=== PATIENT | female | born 1970 | race Caucasian/White ===

== ENCOUNTER 2021-07-02 11:19 | Day surgery (SDC) | payer OTHER, SELFPAY ==
--- NOTE | 2021-07-01 20:03 | HP.PCM_ITS ---
History and Physical Date of Admission: 07/01/21 Date of Service: 06/25/21 MR#:[id number]:[id number]: VINOD MONTERORep #:[id number]:1970 Provider:Dr. 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 Required: No Is patient in pain?: No Allergies No Known Allergies Allergy (Verified 06/25/21 11:04) Medications oxybutynin chloride 15 mg tablet,extended release 24 hr 15 mg PO DAILY 05/09/21 [History Confirmed 06/25/21] Post menopausal: No Patient : No : No PFSH Surgical History Status post right hip replacement Family History Mother Breast cancer Skin cancer Grandmother Breast cancer Skin cancer Father Diabetes Skin cancer Social History Smoking Status: Former smoker alcohol intake: current details: occasionally substance use type: does not use caffeine: Yes what type of physical activity do you participate in: none seatbelt use: always do you feel safe at home: Yes additional social history: Single HPI D&C Details: Details: VINOD MONTERO is a 50 year old who presents for a second opinion regarding an 8mm endometrium and a h/o spotting. She was seeing a provider at an outside facility and she was confused as the 2 providers seeing her were arguing over treatment options and she left the practice. She denies currently bleeding. An EMB was performed but was inconclusive. Pregancy History 1 Elective abortions Hx Para 1 Spontaneous abortions Hx # Term Pregnancies Ectopic pregnancies Hx # Pregnancies Multiple births # of living children ROS Const ROS Unobtainable: All systems reviewed & are unremarkable except as noted in H Resp Resp: Reports system reviewed and no additional complaints, except as documented ; Denies cough GI GI: Reports as per HPI Psych Psych: Reports system reviewed and no additional complaints, except as documented Exam Const General: cooperative, healthy appearing, comfortable and no acute distress Resp Effort & Inspection: normal respiratory effort Skin General: no rashes or lesions noted Psych Appearance: grossly normal Speech and Movement: speech and movement normal Coding Level of Care Code Off vis,est,level 3 Diagnoses Thickened endometrium R93.89 Assessment and Plan Assessment and Plan (1) Thickened endometrium: Status: Acute Plan - Dr. Ricarda Mcfarland DO: After discussing the patient's diagnosis and treatment plan options, patient wishes to proceed with surgical management. I have discussed with the patient the risks, benefits, and alternatives of the procedure which include but are not limited to risks of anesthesia, bleeding, infection, possible damage to bowel, bladder, or surrounding vasculature which could lead to additional surgery to evaluate any complications. Patient agrees to procedure and wishes to proceed. ACOG/uptodate references given for additional information regarding procedure. plan for hysteroscopy D&C for better analysis of thickened endometrium 06/25/211917<Electronically signed by Ricarda Mcfarland DO>Date UPDATE- I have seen the patient and performed any clinically relevant updates to the history and physical exam. Ricarda Mcfarland DO
[2021-07-02] VITALS (8 sets, daily range): BP systolic 135–157; BP diastolic 78–90; PULSE 54–73; RESP 16–18; TEMP 36.2–36.9; O2SAT 97–100; BMI 42.1
--- NOTE | 2021-07-02 | EMB_PTH ---
PATIENT: VINOD MONTERO LOC: [facility] – [place], [place] U#:[id number] AGE/SX: 50/F ROOM: RE07/02/[address]: Dr. Ricarda Mcfarland DO : 1970 BED: DIS: 07/02/2021 SPEC #: [id number] RECD: 07/02/21 14:17 STATUS: LIZETH ANABEL #: [id number] FIONA: 07/02/21 00:[address]: Ricarda Mcfarland DEPT: SURGICAL PATHOLOGY RECD BY: Andrea Long ENTERED: 07/03/21 09:34 SP TYPE: ENDOM BX/C XIMENA DR: No Primary Care Phys Tissues: Endometrium, NOS Procedures: Surgery Specimen Level IV HEADER OPERATION: Hysteroscopy, dilation and curettage PRE-OP DIAGNOSIS: Thickened endometrium TISSUE SUBMITTED: Endometrial curettings MICROSCOPIC DIAGNOSIS Endometrial curettings: Polypoid fragments of endometrial tissue with simple cystic endometrial hyperplasia without atypia. See comment. SJ:nakul 07/04/2021 COMMENT The findings may represent fragments of endometrial polyp Clinical correlation and appropriate follow up are necessary. MICROSCOPIC DESCRIPTION Slides are reviewed. GROSS DESCRIPTION Received in fixative is one container labeled with the patient's name and designated endometrial curettings. The specimen consists of multiple polypoid fragments of calzada soft tissue that in aggregate measure 4 x 3 x 0.3 cm. The specimen is totally submitted in two cassettes. / JOLEEN:nakul 07/03/2021 TC:5 CPT: 71944
[2021-07-02 11:57] LABS: Hematocrit 40.1 % (37-47); Hemoglobin 12.4 g/dL (12.0-15.0); Mean Corp Hgb Conc 30.9 g/dL (32-36); Mean Corpuscular Hgb 26.2 pg (27.0-32.0); Mean Corpuscular Volume 84.8 fL (81-99); Mean Platelet Vol. 11.2 fl (6.2-12.0); Platelet Count 253 K/mm3 (150-450); RBC Distribution Width CV 13.6 % (11.6-14.6); RBC Distribution Width SD 42.3 fl (35.1-43.9); Red Blood Count 4.73 M/mm3 (4.2-5.4); White Blood Count 6.8 K/mm3 (4.4-11.0)
[2021-07-02] MEDS: Lactated Ringers 1,000 ML 15 ML IV (11:57)
[2021-07-02 12:05] LABS: Internal QC Validated? YES +Cl - CLEAR BKGD; Pregnancy, Urine Negative Negative
[2021-07-02] MEDS: Lidocaine 1% (20 ml mdv) 20 ML Vial (13:49)
--- NOTE | 2021-07-02 14:00 | PCM.OP.BLANK ---
Operative Report Date of Procedure: 07/02/21 preoperative diagnosis: postmenopausal bleeding, thickened endometrium Postoperative diagnosis:postmenopausal bleeding and thickened endometrium Surgeon: Dr. Ricarda Mcfarland, EBL: 5cc urine output: 50cc findings: atrophic appearing uterus specimens removed: endometrial curettings Details of the procedure: Patient was prepped and draped in a normal sterile fashion under MAC anesthesia. A weighted speculum was placed in the vagina and the anterior lip of the cervix was grasped with a single-tooth tenaculum. A paracervical block was placed with 1% lidocaine. Cervix was progressively dilated to allow passage of a 5 mm hysteroscope. The lining was fully visualized and noted to have a large uterine polyp and an atrophic appearing lining. A polyp forceps device was used and with 2 passes the polyp was grasped and removed without difficulty. Curettage was performed and specimen was sent to pathology. All instruments were removed from the vagina and excellent hemostasis was noted. Patient was awoken and taken to recovery in stable condition. Multi Select Codes Urinary/Genital Urinary/Genital CPT Codes: 85525 Hysteroscopy,EMC, Polypectomy
--- NOTE | 2021-07-02 14:03 | PCM.DC ---
Discharge Instructions Diet Discharge Diet: No restrictions Activity Discharge Activity: Return to Normal Activity, May Shower and May Take a Tub Bath (after 1 week) May resume sexual activity in: 1-2 weeks Weight Bearing Status: Weight bearing as tolerated Lifting Restrictions: none Dressing / Incision Call your doctor if you observe: Fever of 101 or Higher, Using more than 1 pad per hour, Shortness of breath and Uncontrolled pain Follow Up Care Please Follow Up With: Ricarda Mcfarland DO When: Call [phone] to schedule appointment. Test Results: Test results from this visit will be discussed in further detail at your follow-up appointment, if applicable. Discharge Plan Admission Primary Reason for Your Visit: hysteroscopy dilation and curettage Attending Provider: Ricarda Mcfarland Primary Care Provider: Care Physician,Rachel Primary Discharge Orders/Prescriptions Prescriptions: New ibuprofen 800 mg tablet 800 mg PO Q8H PRN (Reason: pain) 7 Days Qty: 20 RF: 0 oxycodone-acetaminophen [Percocet] 5-325 mg tablet 1 tab PO Q4H PRN (Reason: pain) 3 Days Qty: 6 RF: 0 Continued oxybutynin chloride 15 mg tablet extended release 24hr 15 mg PO DAILY RF: 0 desvenlafaxine succinate [Pristiq] 100 mg tablet extended release 24 hr 100 mg PO DAILY RF: 0 Referrals / Follow Up: Care Physician,Rachel Primary [Primary Care Provider] - Disposition Disposition (needs filled in before D/C Order can be placed): Home, Self Care
== END 2021-07-02 15:26 | disposition home or self-care (01) ==
LOC: SDC 11:22 → AC 11:23
PROVIDERS: Referring Provider Obstetrics & Gynecology; Visit Provider Obstetrics & Gynecology
PROC: 0UDB8ZZ Extraction of Endometrium, Via Natural or Artificial Opening Endoscopic (ICD-10-PCS; CPT 58558; principal; 2021-07-02 12:50)
DX: N95.0 Postmenopausal bleeding (principal); N85.01 Benign endometrial hyperplasia; R93.89 Abnormal findings on diagnostic imaging of other specified body structures; Z87.891 Personal history of nicotine dependence
CPT/HCPCS: 58558; 81025; 85027; 86850; 86900; 86901; 88305; J7120; J2405

== ENCOUNTER 2021-11-05 05:33 | Day surgery (SDC) | payer OTHER, SELFPAY ==
--- NOTE | 2021-10-28 13:15 | HP.PCM_ITS ---
History and Physical Date of Admission: 10/29/21 MR#: [id number] Acct: [id number] Name:?? VINOD MONTERO Rep #: [id number] :? 1970 ?? ? Provider: Dr. Ricarda Mcfarland, DO Age/Sex:?? 51/F ? Location: [facility] – [place] Status: Signed Intake Vital Signs ? 07/31/2210:28 10/02/2214:22 10/02/2214:23 Height 5 ft 3 in 5 ft 3 in 5 ft 3 in Weight: ? 246 lb ? BMI ? 43.5 ? B BP ? 100/80 ? Intake Visit Reasons:?total robotic hyst. BSO Chief Complaint: pre op robotic hyst BSO Outreach Consultant Required: No Is patient in pain?: No Allergies morphine Adverse Reaction (Verified 07/18/21 14:42) Itching Medications oxybutynin chloride 15 mg tablet,extended release 24 hr 15 mg PO DAILY 05/09/21 [History Confirmed 10/02/21] desvenlafaxine succinate 100 mg tablet,extended release 24 hr (Pristiq) 100 mg PO DAILY 06/27/21 [History Confirmed 10/02/21] Is last menstrual period known: No Post menopausal: No Patient : No : No PFSH Medical History? Cancer Depression Overactive bladder Wears glasses Surgical History? Status post dilation and curettage Status post right hip replacement Family History? Mother Breast cancer Skin cancerGrandmother Breast cancer Skin cancerFather Diabetes Skin cancer Social History? Smoking Status:? Former smoker? alcohol intake:? current? details:? occasionally? substance use type:? does not use? caffeine:? Yes? what type of physical activity do you participate in:? none? seatbelt use:? always? do you feel safe at home:? Yes? additional social history:? Single? HPI total robotic hyst. BSO Details:? Details: VINOD MONTERO is a 50 year old who presents for 2 week follow up D&C. Results showed simple cystic hyperplasia without atypia. The patient is given treatment options today. She also complains of stress incontinence and over active bladder. ultrasound shows a 7 x 3x4 cm uterus, she is obese with a BMI of 43.5.? Pregancy History ? 1 ? Elective abortions ? Hx Para ? 1 ? Spontaneous abortions ? Hx # Term Pregnancies ? Ectopic pregnancies ? Hx # Pregnancies ? Multiple births ? # of living children ? ROS Const ROS Unobtainable: All systems reviewed & are unremarkable except as noted in H Resp Resp: Reports system reviewed and no additional complaints, except as documented;? Denies cough GI GI: Reports as per HPI Psych Psych: Reports system reviewed and no additional complaints, except as documented Exam Const General: cooperative, healthy appearing, comfortable and no acute distress Resp Effort & Inspection: normal respiratory effort Skin General: no rashes or lesions noted Psych Appearance: grossly normal Speech and Movement: speech and movement normal Coding Level of Care Code Off vis,est,level 4 Diagnoses Simple endometrial hyperplasia? N85.01 Status post hysteroscopy? Z98.890 Incontinence of urine? R32 Thickened endometrium? R93.89 Assessment and Plan Assessment and Plan (1) Simple endometrial hyperplasia:?Status:?Acute ?Plan:? After discussing the patient's diagnosis and treatment plan options, patient wishes to proceed with surgical management. Because of obesity, plan to proceed with total robotic hysterectomy, BSO, and cysto.? ?I have discussed with the patient the risks, benefits, and alternatives of the procedure which include but are not limited to risks of anesthesia, bleeding, infection, possible damage to bowel, bladder, or surrounding vasculature which could lead to additional surgery to evaluate any complications.? Patient agrees to procedure and wishes to proceed.? ACOG/uptodate references given for additi onal information regarding procedure.?? (2) Status post hysteroscopy:?Status:?Acute ?Comment: large uterine polyp removed 07/02/21 -NIKKI (3) Incontinence of urine:?Status:?Acute (4) Thickened endometrium:?Status:?Acute UPDATE- I have seen the patient and performed any clinically relevant updates to the history and physical exam. Ricarda Mcfarland, DO
--- NOTE | 2021-10-29 05:50 | EKG12_ITS ---
Test Reason : PRE-OP Blood Pressure : / mmHG Vent. Rate : 071 BPM Atrial Rate : 071 BPM P-R Int : 184 ms QRS Dur : 080 ms QT Int : 380 ms P-R-T Axes : 055 040 023 degrees QTc Int : 412 ms Normal sinus rhythm Normal ECG Confirmed by HARMONY LINDSEY, SERGEY ([id number]), editor newspaper SEPIDEH SOTO ([id number]) on 10/31/2021 9:56:08 AM Referred By: Ricarda Mcfarland Confirmed By:SERGEY ANTUNEZ MD
[2021-10-29 06:33] VITALS: BP 147/89; PULSE 77; RESP 16; TEMP 36.8; O2SAT 100; BMI 44.1
[2021-10-29 06:33] LABS: Hematocrit 40.7 % (37-47); Hemoglobin 12.7 g/dL (12.0-15.0); Mean Corp Hgb Conc 31.2 g/dL (32-36); Mean Corpuscular Hgb 26.7 pg (27.0-32.0); Mean Corpuscular Volume 85.7 fL (81-99); Mean Platelet Vol. 11.2 fl (6.2-12.0); Platelet Count 260 K/mm3 (150-450); RBC Distribution Width SD 46.8 fl (35.1-43.9); Red Blood Count 4.75 M/mm3 (4.2-5.4)
[2021-10-29] MEDS: Gabapentin 600 MG Tablet PO (06:38)
[2021-10-29] MEDS: Acetaminophen 500 MG Tablet 1000 MG PO (06:38)
[2021-10-29] MEDS: Phenazopyridine 95 MG Tablet 190 MG PO (06:38)
[2021-10-29] MEDS: Celecoxib 200 MG Capsule 400 MG PO (06:39)
[2021-10-29] MEDS: Scopolamine 1mg/72hr Patch 1 PATCH TD (06:39)
[2021-10-29 07:28] LABS: hCG Titer Quant., Serum 11 mIU/mL (1-3)
[2021-10-29 08:01] LABS: Internal QC Validated? YES +Cl - CLEAR BKGD
[2021-10-29 08:05] LABS: Pregnancy, Serum, hCG Quali. POSITIVE Negative
[2021-10-29 08:15] LABS: Bedside Glucose 179 mg/dL (74-106)
[2021-10-29 08:24] LABS: Magnesium 2.1 mg/dL (1.6-2.6)
[2021-10-29 08:34] LABS: hCG Titer Quant., Serum 12 mIU/mL (1-3)
[2021-10-31 10:25] LABS: hCG Titer Quant., Serum 11 mIU/mL (1-3)
[2021-11-05] VITALS (10 sets, daily range): BP systolic 121–151; BP diastolic 77–95; PULSE 73–93; RESP 16–17; TEMP 36.1–36.8; O2SAT 90–100; BMI 44.1
--- NOTE | 2021-11-05 06:00 | HP_ITS ---
Intake Vital Signs 07/31/21 11:28 10/02/21 15:22 10/02/21 15:23 Height 5 ft 3 in 5 ft 3 in 5 ft 3 in Weight: 246 lb BMI 43.5 BP 100/80 Intake Visit Reasons: total robotic hyst. BSO Chief Complaint: pre op robotic hyst BSO Carbon Grinder Required: No Is patient in pain?: No Allergies morphine Adverse Reaction (Verified 07/18/21 14:42) Itching Medications oxybutynin chloride 15 mg tablet,extended release 24 hr 15 mg PO DAILY 05/09/21 [History Confirmed 10/02/21] desvenlafaxine succinate 100 mg tablet,extended release 24 hr (Pristiq) 100 mg PO DAILY 06/27/21 [History Confirmed 10/02/21] Is last menstrual period known: No Post menopausal: No Patient : No : No PFSH Medical History Cancer Depression Overactive bladder Wears glasses Surgical History Status post dilation and curettage Status post right hip replacement Family History Mother Breast cancer Skin cancer Grandmother Breast cancer Skin cancer Father Diabetes Skin cancer Social History Smoking Status: Former smoker alcohol intake: current details: occasionally substance use type: does not use caffeine: Yes what type of physical activity do you participate in: none seatbelt use: always do you feel safe at home: Yes additional social history: Single HPI total robotic hyst. BSO Details: Details: VINOD MONTERO is a 50 year old who presents for 2 week follow up D&C. Results showed simple cystic hyperplasia without atypia. The patient is given treatment options today. She also complains of stress incontinence and over active bladder. ultrasound shows a 7 x 3x4 cm uterus, she is obese with a BMI of 43.5. Pregancy History 1 Elective abortions Hx Para 1 Spontaneous abortions Hx # Term Pregnancies Ectopic pregnancies Hx # Pregnancies Multiple births # of living children ROS Const ROS Unobtainable: All systems reviewed & are unremarkable except as noted in H Resp Resp: Reports system reviewed and no additional complaints, except as documented; Denies cough GI GI: Reports as per HPI Psych Psych: Reports system reviewed and no additional complaints, except as documented Exam Const General: cooperative, healthy appearing, comfortable and no acute distress Resp Effort & Inspection: normal respiratory effort Skin General: no rashes or lesions noted Psych Appearance: grossly normal Speech and Movement: speech and movement normal Coding Level of Care Code Off vis,est,level 4 Diagnoses Simple endometrial hyperplasia N85.01 Status post hysteroscopy Z98.890 Incontinence of urine R32 Thickened endometrium R93.89 Assessment and Plan Assessment and Plan (1) Simple endometrial hyperplasia: Status: Acute Plan: After discussing the patient's diagnosis and treatment plan options, patient wishes to proceed with surgical management. Because of obesity, plan to proceed with total robotic hysterectomy, BSO, and cysto. I have discussed with the patient the risks, benefits, and alternatives of the procedure which include but are not limited to risks of anesthesia, bleeding, infection, possible damage to bowel, bladder, or surrounding vasculature which could lead to additional surgery to evaluate any complications. Patient agrees to procedure and wishes to proceed. ACOG/uptodate references given for additional information regarding procedure. (2) Status post hysteroscopy: Status: Acute Comment: large uterine polyp removed 07/02/21 -NIKKI (3) Incontinence of urine: Status: Acute (4) Thickened endometrium: Status: Acute
[2021-11-05] MEDS: Scopolamine 1mg/72hr Patch 1 PATCH TD (06:27)
[2021-11-05] MEDS: Gabapentin 600 MG Tablet PO (06:28)
[2021-11-05] MEDS: Lactated Ringers 1,000 ML 40 ML IV (06:28)
[2021-11-05] MEDS: Celecoxib 200 MG Capsule 400 MG PO (06:28)
[2021-11-05] MEDS: Acetaminophen 500 MG Tablet 1000 MG PO (06:28)
[2021-11-05 07:00] LABS: Bedside Glucose 145 mg/dL (74-106)
--- NOTE | 2021-11-05 07:30 | HYST_PTH ---
PATIENT: VINOD MONTERO LOC: [facility] – [place] U#:[id number] AGE/SX: 51/F ROOM: RE11/05/[address]: Dr. Ricarda Mcfarland DO : 1970 BED: DIS: 11/05/2021 SPEC #: [id number] RECD: 11/05/21 10:52 STATUS: LIZETH LITTLE #: [id number] FIONA: 11/05/21 07:[address]: Ricarda Mcfarland DEPT: SURGICAL PATHOLOGY RECD BY: Sheeba Dinero ENTERED: 11/05/21 11:59 SP TYPE: HYSTERECT OTHR DR: Dr. Dean Bae MD Tissues: Uterus, NOS Procedures: Surgery Specimen Level V HEADER OPERATION: KADI, alvina robotic hysterectomy, bilateral salpingo-oophorectomy PRE-OP DIAGNOSIS: Simple endometrial hyperplasia TISSUE SUBMITTED: Cervix, uterus, bilateral fallopian tubes and bilateral ovaries MICROSCOPIC DIAGNOSIS Cervix, uterus, bilateral fallopian tubes and ovaries, hysterectomy and bilateral salpingo-oophorectomy: Cervix ? chronic inflammation. Endometrium ? predominantly proliferative endometrium with focal area of simple cystic endometrial hyperplasia without atypia. Myometrium ? intramural and subserosal leiomyomas (largest measuring 1.5 cm in greatest dimension). - Focal adenomyosis. Bilateral fallopian tubes - no pathologic diagnosis. Bilateral ovaries - no pathologic diagnosis. SJ:rg 11/06/2021 COMMENT Please make reference to previous specimen ([id number]) endometrial curettings with diagnosis of ?polypoid fragments of endometrial tissue with simple cystic endometrial hyperplasia without atypia.? Case has been reviewed in consultation with Dr. Morales who concurs with the above diagnosis. IDC:AM MICROSCOPIC DESCRIPTION Slides are reviewed. GROSS DESCRIPTION Received in fixative is one container labeled with the patient's name and designated cervix, uterus, bilateral fallopian tubes and bilateral ovaries. The specimen consists of a hysterectomy specimen consisting of uterus with cervix and attached bilateral fallopian tubes and ovaries. The uterus with cervix weighs 50 gm and measures 7 x 5 x 3.5 cm. The serosal surface is calzada, glistening. A few subserosal nodules are noted. The ectocervical mucosa is unremarkable. The external os is slit-like in contour. The endocervical canal measures 3 cm in length and the endocervical mucosa is unremarkable. The triangular endometrial cavity measures 3.5 cm in length and 2.5 cm in width. The endometrium is calzada, glistening without any mass lesion and measures 0.1 cm in thickness. Sections of the uterine wall reveal three calzada intramural and subserosal nodular masses, largest mass measuring 1.5 cm in greatest dimension. Sections of these masses reveal calzada whorled cut surfaces without areas of hemorrhage, necrosis or cystic degeneration. The uterine wall measures up to 1.5 cm in thickness. The right fallopian tube measures 6 cm in length and 0.5 cm in diameter. The fimbrial end is identified. Sections reveal unremarkable cut surfaces. No tubo-ovarian adhesions are identified. The right ovary measures 2.5 x 1 x 1 cm. Sections reveal unremarkable cut surfaces. The left fallopian tube is similar appearance is similar appearance to right and measures 5.5 cm in length and 0.6 cm in diameter. The left ovary measures 2.5 x 1.5 x 1 cm. Sections reveal unremarkable cut surfaces. Pulling Unit Floorhand sections are submitted in 11 cassettes as follows: 1 - anterior cervix, 2 - posterior cervix, 3-5 - anterior uterine wall, 68 - posterior uterine wall, 9 - nodular masses, 10 - right fallopian tube and ovary, 11 - left fallopian tube and ovary. The entire endometrium is submitted. / SJ:ankul 11/05/2021 TC:5 CPT: 92370
--- NOTE | 2021-11-05 07:37 | PCM.DC ---
Discharge Instructions Diet Discharge Diet: No restrictions Activity May resume sexual activity in: 6 weeks Weight Bearing Status: Full weight bearing Dressing / Incision Call your doctor if your incision/area has: Continuous Slow Oozing, Sudden Increased Bleeding, Increased Pain/ Swelling, Increased Redness and Foul Smelling Discharge Call your doctor if you observe: Fever of 101 or Higher, Using more than 1 pad per hour, Shortness of breath, Chest pain and Uncontrolled pain Suture Line Care: Avoid Pulling/Pushing and Avoid Pinching/Bending Remove Dressing in: 1 week (if present) Cleanse incision/area with: Soap & Water and Keep Dressing Clean & Dry Follow Up Care Please Follow Up With: Ricarda Mcfarland DO When: Call to make an appointment with your doctor for a postop visit in 2 and 6 weeks Test Results: Test results from this visit will be discussed in further detail at your follow-up appointment, if applicable. Discharge Plan Admission Primary Reason for Your Visit: hysterectomy Attending Provider: Ricarda Mcfarland Primary Care Provider: Dean Bae Discharge Orders/Prescriptions Prescriptions: New oxycodone-acetaminophen [Percocet] 5-325 mg tablet 1 tab PO Q4H PRN (Reason: pain) 7 Days Qty: 30 0RF ibuprofen 600 mg tablet 600 mg PO Q6H PRN (Reason: pain) 7 Days Qty: 30 0RF Continued oxybutynin chloride 15 mg tablet extended release 24hr 15 mg PO DAILY desvenlafaxine succinate [Pristiq] 100 mg tablet extended release 24 hr 100 mg PO DAILY loratadine [Claritin] 10 mg Tablet 10 mg PO DAILY bupropion HCl 150 mg tablet extended release 24 hr 150 mg PO DAILY Other Ambulatory Orders: ,Urine (Routine) Timeframe: 20211105 Facility: [facility] - Location: Laboratory Ordered By: Dr. Ricarda Mcfarland Type & Screen - PAT ONLY (Routine) Timeframe: 20211105 Facility: [facility] - Location: Laboratory Ordered By: Dr. Ricarda Mcfarland Referrals / Follow Up: Dean Bae MD [Primary Care Provider] - Disposition Disposition (needs filled in before D/C Order can be placed): Home, Self Care
[2021-11-05] MEDS: Cefazolin 2 GM in 0.9% Normal Saline 100 ML IV (07:44)
[2021-11-05] MEDS: Bupivacaine 0.25% 30 ML Vial (07:57)
--- NOTE | 2021-11-05 09:09 | PCM.OP.BLANK ---
Problems Associated Problem List Diagnoses (1) Thickened endometrium: (2) Status post hysteroscopy: (3) Simple endometrial hyperplasia: Operative Report Date of Procedure: 11/05/21 Preoperative diagnosis:simple endometrial hyperplasia, obesity, fibroid uterus Postoperative diagnosis: simple endometrial hyperplasia, obesity, fibroid uterus Procedure: Total robotic hysterectomy bilateral salpingooophorectomy and cystoscopy Anesthesia: General endotracheal intubation Estimated blood loss: 30cc Urine output:200cc Drains: None Implanted material: None Complications: None Surgeon: Dr. Ricarda Mcfarland DO Communications Director: JOSHUA Downs Communications Director: Meghna owen RN Findings: 8 cm size uterus, normal appearing ovaries and tubes. On exploration of the abdominal cavity the uterus, adnexa, bowel, and liver were found to be normal. Cystoscopy showed no evidence of leaking at approximately 250 cc of normal saline, positive ureteral orifices and jet flow are seen and no suture material was appreciated in the bladder. Specimens removed: Uterus and cervix, Bilateral tubes and ovaries Reason for surgery: This is a 51-year-old who presented to my office with history of obesity and simple endometrial hyperplasia. The planned procedure is for a robotic hysterectomy the risks benefits and alternatives were discussed with the patient the patient had a clear understanding of the procedure and a consent form was signed. Procedure: The patient was placed in the dorsal low lithotomy position and prepped and draped in the normal sterile fashion both abdominally and in the perineum. Her legs were placed in stirrups a Fitzgerald catheter was inserted into the urethra without difficulty. A weighted speculum was placed in the vagina and a single-tooth tenaculum was used to grasp the anterior lip of the cervix. A medium advincula uterine manipulator was inserted through the cervix without complication. It was then tied into place at the 2 and 10:00 locations on the cervix. Gloves were changed and attention was turned towards the abdomen. Approximately 23 cm above the pubic symphysis in the midline, and after Marcaine injection, a <del>8</del> mm incision was made. An 8 mm trocar was inserted through the laparoscope, then inserted into the abdomen under direct visualization using the laparoscope. Good abdominal placement was noted and no complications were appreciated. An air seal device was utilized to create pneumoperitoneum. At 12 cm lateral to the midline on the left and right sides 8 mm accessory ports were placed. Next a left upper quadrant 8 mm customer support assistant port site was placed. The patient was placed in steep Trendelenburg position. The robot was docked. The hysterectomy was initiated first by taking down the round ligament on each side using the vessel sealer device. The peritoneum between the round ligament and the IP ligament was opened using electrocautery and extended the length of the IP ligament. The IP ligament was then taken down using the vessel sealer device. These areas were freed without complication the broad ligament was then and taken down using the vessel sealer device. Next the bladder flap was taken down without complication. This was done using monopolar cautery to the level of the cervical vaginal junction. After the bladder flap was created, uterine vessels were then isolated and cauterized using the vessel sealer device and EndoShears. At this point the uterine vessels were taken down further starting from the ascending branch, dissecting along the edges of the cervix to the level of the cervical vaginal junction with hemostasis appreciated. The cervical vaginal junction was then using monopolar cautery in a circumferential pattern across the superior aspect of the cervix. The specimen was delivered through the vagina and sent to pathology. The remaining vaginal cuff was then closed using OV lock suture. This was performed in a running technique. Excellent hemostasis was obtained and good closure was noted. Irrigation was then performed. All operative sites were noted to be hemostatic. A cystoscopy was performed with a 70 degree cystoscope through the urethra into the bladder without complication. The bladder was instilled with approximately 250 cc of normal saline. Intraoperative images were made. Ureteral orifices and jets were identified. No suture material was appreciated in the bladder. The bladder was then drained and cystoscope was removed. The abdominal cavity was again examined using the laparoscope after the robot was undocked. All operative sites were noted to be hemostatic. The trochars were removed under direct visualization without complication and pneumoperitoneum was reduced. At this point the skin was then closed using 4-0 Monocryl subcuticular stitch and sealed with surgical glue. The patient tolerated the procedure well sponge lap and needle counts were correct x2 the patient was taken to the recovery room in stable condition. Multi Select Codes Urinary/Genital Urinary/Genital CPT Codes: 35913 Cystoscopy and 68332 TLH+BS/O <250gr uterus
== END 2021-11-05 13:25 | disposition home or self-care (01) ==
LOC: SDC 05:33 → AC 05:33
PROVIDERS: Anesthesiology; PCP Family Medicine; Referring Provider Obstetrics & Gynecology; Visit Provider Obstetrics & Gynecology
PROC: 0UT94ZZ Resection of Uterus, Percutaneous Endoscopic Approach (ICD-10-PCS; CPT 58571; principal; 2021-11-05 07:10)
DX: D25.1 Intramural leiomyoma of uterus (principal); Z68.41 Body mass index [BMI] 40.0-44.9, adult; E66.9 Obesity, unspecified; Z87.891 Personal history of nicotine dependence; D25.2 Subserosal leiomyoma of uterus; N85.01 Benign endometrial hyperplasia; Z79.899 Other long term (current) drug therapy; N32.81 Overactive bladder; R32 Unspecified urinary incontinence; F32.A Depression, unspecified; Q65.89 Other specified congenital deformities of hip
CPT/HCPCS: 58571; S2900; 00840; 36415; 82962; 83735; 84702; 84703; 85027; 86850; 86900; 86901; 88307; 93005; J7120; J2405; J3475